=== PATIENT | female | born 1985 | race Caucasian/White ===

== ENCOUNTER 2018-08-29 18:30 | Emergency (ER) | payer BC ==
[~2018-08-29] VITALS: Ht 162.6 cm; Wt 58.1 kg
[2018-08-29 18:49] VITALS: Ht 162.6 cm; Wt 58.1 kg
[2018-08-29 19:33] LABS: UA SPECIFIC GRAVITY 1.025 (1.005-1.035); microscopic required? YES; urine erythrocyte NEGATIVE (NEGATIVE)
[2018-08-29 19:39] LABS: PLATELET COUNT 271 x10^3mcL (130-400); RED CELL DISTRIBUTION WIDTH 13.5 % (11.5-14.5)
[2018-08-29 19:40] LABS: BASOPHIL % 0.3 % (0-2)
[2018-08-29 20:43] VITALS: BP 125/75
== END 2018-08-29 20:53 | disposition home or self-care (01) ==
LOC: ED 18:30
PROVIDERS: Emergency Medicine
DX: O20.0 Threatened abortion (principal); O23.42 Unspecified infection of urinary tract in pregnancy, second trimester; J45.909 Unspecified asthma, uncomplicated; Z3A.16 16 weeks gestation of pregnancy; Z91.040 Latex allergy status
CPT/HCPCS: 36415